=== PATIENT | female | born 1960 | race Caucasian/White ===

== ENCOUNTER 2021-08-04 10:08 | Emergency (ER) | payer SELFPAY ==
[2021-08-04 10:31] VITALS: BP 102/70; PULSE 90; TEMP 98; BMI 25.8
[2021-08-04] MEDS ORDERED: NAPROXEN 500 MG TABLET PO ONE (12:33)
[2021-08-04] MEDS ORDERED: NAPROXEN 500 MG TABLET ONE (12:43)
== END 2021-08-04 12:46 | disposition home or self-care (01) ==
LOC: JERFT 10:08
DX: S93.402A Sprain of unspecified ligament of left ankle, initial encounter (principal); S43.401A Unspecified sprain of right shoulder joint, initial encounter; S83.92XA Sprain of unspecified site of left knee, initial encounter; W10.8XXA Fall (on) (from) other stairs and steps, initial encounter
CPT/HCPCS: 73030-TC-RT-FY; 73562-TC-LT-FY; 73610-TC-LT-FY; 73630-TC-LT; 99285-25